=== PATIENT | female | born 1985 | race Caucasian/White ===

== ENCOUNTER 2022-10-19 10:19 | Emergency (ER) | payer MEDICARE, MEDICAID, SELFPAY ==
--- NOTE | ~2022-10-19 | US_ITS ---
EXAMINATION: Noninvasive assessment of the bilateral lower extremities with ARTERIAL DUPLEX CLINICAL INFORMATION: Lower extremity swelling and pain TECHNIQUE: Duplex Doppler techniques with waveform analysis and measurement of velocities in the bilateral common femoral, profunda femoris, superficial femoral, popliteal and tibial arteries were performed. COMPARISON: None FINDINGS: DIRECT DUPLEX DOPPLER FINDINGS: RIGHT LEG: Common femoral artery: 139 cm/s, phasicity: Triphasic Profunda femoris artery: 77.8 cm/s, phasicity: Triphasic Superficial femoral artery (proximal): 111 cm/s, phasicity: Triphasic Superficial femoral artery (mid): 122 cm/s, phasicity: Triphasic Superficial femoral artery (distal): 77.7 cm/s, phasicity: Triphasic Popliteal artery: 89.5 cm/s, phasicity: Triphasic Posterior tibial artery: 66.8 cm/s, phasicity: Triphasic Peroneal artery: 84.5 cm/s, phasicity: Triphasic LEFT LEG: Common femoral artery: 114 cm/s, phasicity: Triphasic Profunda femoris artery: 85.5 cm/s, phasicity: Triphasic Superficial femoral artery (proximal): 156 cm/s, phasicity: Triphasic Superficial femoral artery (mid): 146 cm/s, phasicity: Triphasic Superficial femoral artery (distal): 99.5 cm/s, phasicity: Triphasic Popliteal artery: 109 cm/s, phasicity: Triphasic Posterior tibial artery: 87.6 cm/s, phasicity: Triphasic US/US arterial duplex LE IMPRESSION: Right leg: Normal duplex arterial ultrasound without significant stenosis or arterial occlusion Left leg: Normal duplex arterial ultrasound without significant stenosis or arterial occlusion
--- NOTE | ~2022-10-19 | US_ITS ---
EXAMINATION: US VENOUS ULTRASOUND WITH DOPPLER LOWER EXTREMITY, BILATERAL CLINICAL INFORMATION: Bilateral lower extremity edema COMPARISON: None available. TECHNIQUE: Ultrasound of the deep veins is performed from the hip to the calf with compression sonography and color and pulse Doppler assessment. Spectral analysis with color-flow imaging is performed. FINDINGS: RIGHT: There is normal venous compression and respiratory variation and augmented flow. The visualized common femoral vein, superficial femoral vein, profunda femoral vein, popliteal vein, and the trifurcation region shows no evidence of deep venous thrombosis. There is no significant popliteal fossa cyst. Prominent lymph node is seen in the right groin LEFT: There is normal venous compression and respiratory variation and augmented flow. The visualized common femoral vein, superficial femoral vein, profunda femoral vein, popliteal vein, and the trifurcation region shows no evidence of deep venous thrombosis. There is no significant popliteal fossa cyst. Prominent lymph nodes seen in the left groin If the patient's symptoms persist, followup ultrasound in 5 days 7 days might be of value to exclude proximal propagation from a non-visualized calf vein. US/US venous duplex LE BI IMPRESSION: No DVT demonstrated in the bilateral lower extremity.
[2022-10-19 10:30] VITALS: BP 133/76; PULSE 79; RESP 18; TEMP 36.8; O2SAT 98; BMI 27.6
[2022-10-19 16:12] VITALS: BP 130/74; PULSE 68; RESP 16; TEMP 36.1; O2SAT 98
--- NOTE | 2022-10-19 16:12 | ED.EXTPRO ---
HPI - Extremity Problem General Chief complaint: Extremity Problem Stated complaint: cellulitis Time Seen by Provider: 10/19/22 11:39 Source: patient and RN notes reviewed Mode of arrival: ambulatory Limitations: no limitations History of Present Illness HPI Narrative: This is a 37-year-old female, with a past medical history polysubstance abuse on methadone, who presents to the emergency department with complaints of bilateral lower extremity redness and swelling x4 weeks. Patient reports that she has been in detox over the last several weeks and has gone to [facility] as well as [facility]. She states that last week she was seen at [facility] where they prescribed her cephalexin and another antibiotic, which she has been taking as prescribed however she reports that the swelling has not improved. She reports that she also was placed on Lasix which has provided her with some relief. Patient reports that she has had multiple ultrasounds which have been negative for DVT. She denies any chest pain, shortness of breath, fevers, chills, abdominal pain, nausea, vomiting, or diarrhea. No other complaints or concerns at this time. MD Complaint: extremity pain and extremity swelling Onset (ago): week(s) Location: lower extremity Quality: aching Radiation: none Relieving factors: nothing Exacerbating factors: nothing Associated symptoms: denies other symptoms Related Data Previous Rx's Medication Instructions Recorded prednisone 20 mg tablet 40 mg PO DAILY 5 days #10 tabs 10/19/22 Allergies Allergy/AdvReac Type Severity Reaction Status Date / Time olanzapine [From Zyprexa] Allergy Mild SWELLING Unverified 02/10/20 17:37 quetiapine [From Seroquel] AdvReac Mild HALLUCINATI Unverified 02/10/20 17:37 ON Review of Systems Review of Systems: Constitutional: No Weight loss, No Fever, No Chills ENT/Mouth: No Ear Pain, No Nasal Congestion, No Sinus Pain, No Hoarseness, No sore throat, No Rhinorrhea, No Swallowing Difficulty Cardiovascular: No Chest Pain, No SOB Respiratory: No Cough, No Sputum, No Wheezing Gastrointestinal: No Nausea, No Vomiting, No Diarrhea, No Constipation, No Abdominal pain Genitourinary: No Dysuria, No Urinary Frequency, No Hematuria, No Urinary Incontinence/retention, No Urgency, No Flank Pain Musculoskeletal: No joint pain, No Myalgias, No Joint Swelling Skin: No Skin Lesions, No rash Neuro: No Weakness, No Numbness, No Paresthesias [facility] Social History Social History Advance Directives: No Advance Directives Information Provided: No Physical Exam Vital Signs: Vital Signs: Last Vital Signs Temp 97.0 F 10/19/22 16:12 Pulse 68 10/19/22 16:12 Resp 16 10/19/22 16:12 BP 130/74 10/19/22 16:12 Pulse Ox 98 10/19/22 16:12 O2 Del Method Room Air 10/19/22 16:12 BMI result Body Mass Index 27.6 General: Awake, alert, and oriented X3. No acute distress. HEENT: Normal inspection CVS: Normal heart rate and rhythm. Pulses normal. S1-S2 regular Respiratory: No respiratory distress, no wheezing, rhonchi, or rales, lungs clear to auscultation bilaterally Skin: Warm, dry, no rashes noted to exposed skin. Normal skin color. Normal skin turgor. Extremities: Bilateral lower extremities with 1+ pitting edema and blanching scant erythema, area is not warm, ot red beefy red. There is no drainage or discharge. Neuro: Oriented X 3. No motor deficit. No sensory deficit. Course Reevaluation(s) Reevaluation #1: There were multiple attempts made for blood draws however upon numerous venipunctures it was unsuccessful. I do not think that this is cellulitic in nature. Patient is afebrile nontoxic-appearing, she has had no fevers or chills or chest pain.. Distal sensation and circulation is intact. Pedal pulses are 2+ bilaterally. Ultrasounds are negative. I advised patient that her symptoms may be due to a vascular issue and would benefit from follow-up with vascular specialist as well as a lead technician. Discussed with patient to finish the entire course of the rest of her antibiotics for full coverage, also given course of prednisone as this may help with her symptoms. Discussed importance of keeping legs elevated as this will help with her swelling. Given strict precautions of when to return with any new or worsening symptoms. Patient understands and agrees with plan Medical Decision Making Medical Decision Making MDM Narrative: 37-year-old female presenting for evaluation of bilateral lower extremity swelling. Patient has been seen by [facility] and [facility] for this and was told that it was cellulitis. On examination patient has scant erythema and hardness to bilateral lower extremities. She has no calf tenderness, 1+ edema however this does not appear cellulitic in nature as legs are not red. Vital signs are stable. Plan: Labs, venous duplex and arterial ultrasounds ordered Differential Diagnosis Differential Diagnoses: The differential diagnosis associated with the presentation includes Dependent edema, CHF, cellulitis, DVT Independent Interpretation I performed an independent interpretation of an: Ultrasound Radiology Impression Discussion of test interpretation with radiology: I have reviewed the radiologist's reading. Radiologist Impression: EXAMINATION:? US VENOUS ULTRASOUND WITH DOPPLER LOWER EXTREMITY, BILATERAL CLINICAL INFORMATION:? Bilateral lower extremity edema COMPARISON:? None available. TECHNIQUE: Ultrasound of the deep veins is performed from the hip to the calf with compression sonography and color and pulse Doppler assessment. Spectral analysis with color-flow imaging is performed. FINDINGS: RIGHT: There is normal venous compression and respiratory variation and augmented flow. The visualized common femoral vein, superficial femoral vein, profunda femoral vein, popliteal vein, and the trifurcation region shows no evidence of deep venous thrombosis. ? There is no significant popliteal fossa cyst. Prominent lymph node is seen in the right groin LEFT: There is normal venous compression and respiratory variation and augmented flow. The visualized common femoral vein, superficial femoral vein, profunda femoral vein, popliteal vein, and the trifurcation region shows no evidence of deep venous thrombosis. ? There is no significant popliteal fossa cyst. Prominent lymph nodes seen in the left groin If the patient's symptoms persist, followup ultrasound in 5 days 7 days might be of value to exclude proximal propagation from a non-visualized calf vein. US/US venous duplex LE BI IMPRESSION: No DVT demonstrated in the bilateral lower extremity. Dictated By: Charlie Farley MD EXAMINATION: Noninvasive assessment of the bilateral lower extremities with ARTERIAL DUPLEX CLINICAL INFORMATION: Lower extremity swelling and pain TECHNIQUE: Duplex Doppler techniques with waveform analysis and measurement of velocities in the bilateral common femoral, profunda femoris, superficial femoral, popliteal and tibial arteries were performed.? COMPARISON: None FINDINGS: DIRECT DUPLEX DOPPLER FINDINGS: RIGHT LEG: Common femoral artery: 139 cm/s, phasicity: Triphasic Profunda femoris artery: 77.8 cm/s, phasicity: Triphasic Superficial femoral artery (proximal): 111 cm/s, phasicity: Triphasic Superficial femoral artery (mid): 122 cm/s, phasicity: Triphasic Superficial femoral artery (distal): 77.7 cm/s, phasicity: Triphasic Popliteal artery: 89.5 cm/s, phasicity: Triphasic Posterior tibial artery: 66.8 cm/s, phasicity: Triphasic Peroneal artery: 84.5 cm/s, phasicity: Triphasic LEFT LEG: Common femoral artery: 114 cm/s, phasicity: Triphasic Profunda femoris artery: 85.5 cm/s, phasicity: Triphasic Superficial femoral artery (proximal): 156 cm/s, phasicity: Triphasic Superficial femoral artery (mid): 146 cm/s, phasicity: Triphasic Superficial femoral artery (distal): 99.5 cm/s, phasicity: Triphasic Popliteal artery: 109 cm/s, phasicity: Triphasic Posterior tibial artery: 87.6 cm/s, phasicity: Triphasic US/US arterial duplex LE BI IMPRESSION: ? Right leg: Normal duplex arterial ultrasound without significant stenosis or arterial occlusion ? Left leg: Normal duplex arterial ultrasound without significant stenosis or arterial occlusion ? ? ? Dictated By: Chalrie Farley MD Discharge Plan Discharge Clinical Impression: Swelling of both lower extremities Patient Disposition: Home, Self-Care Additional Instructions: Please finish the entire course of your previously prescribed antibiotics. Take full course prednisone. This medication may cause increased energy, take in morning with lots of fluids. Elevating her legs may help with the swelling. Please follow-up with your primary care physician. I am also giving your referral to a vascular specialist as well as a lead technician. Please call them next week to follow-up. If any new or worsening symptoms occur, including fevers, chills, worsening lower extremity swelling, redness, please return for re-evaluation. [facility] [address], [address] [place] [address] Phone:? tel:[phone] Prescriptions: New prednisone 20 mg tablet 40 mg PO DAILY 5 Days Qty: 10 0RF Referrals: [facility] Vascular Services [Provider Group] (BL lower leg swelling) Interventions: ED Discharge Assessment Last Done: 10/19/22 16:09 Discharge Date/Time: 10/19/22 16:13
== END 2022-10-19 16:13 | disposition home or self-care (01) ==
PROVIDERS: Emergency Provider Internal Medicine; PCP Family Medicine
DX: R60.0 Localized edema (principal); M79.605 Pain in left leg; M79.604 Pain in right leg; F19.10 Other psychoactive substance abuse, uncomplicated; F11.20 Opioid dependence, uncomplicated
CPT/HCPCS: 93925; 93970; 99283; 99284

== ENCOUNTER 2022-11-06 12:36 | Emergency (ER) | payer MEDICARE, MEDICAID, SELFPAY ==
--- NOTE | ~2022-11-06 | XR_ITS ---
EXAMINATION: XR HAND, LEFT CLINICAL INFORMATION: 5th finger pain after fall COMPARISON: None available. TECHNIQUE: PA, lateral, and oblique views of the left hand. FINDINGS: Plate and screw device present over healed radial fracture. Some mild degenerative changes are present at the DIP joints along with a marginal erosion at the base of the third proximal phalanx There is no evidence of an acute osseous injury or fracture. XR/XR hand LT min 3V Impression: 1. No evidence of an acute osseous injury. 2. Degenerative changes as described above with marginal erosion base of the third proximal phalanx.
--- NOTE | 2022-11-06 12:51 | ED.GENADULT ---
HPI - General Adult General Chief complaint: General Medical Stated complaint: Vascular issues/Fall L pinky inj Time Seen by Provider: 11/06/22 15:39 Source: patient, RN notes reviewed and old records reviewed Mode of arrival: ambulatory History of Present Illness HPI narrative: 37-year-old female with a past medical history of polysubstance abuse on methadone, presenting to the ED complaining of acute on chronic persistent bilateral LE edema > LLE, and left pinky swelling, pain, ecchymosis s/p mechanical trip and fall early this morning. Admits has been seen at [facility] and [place] for similar symptoms, as well as our ED on 10/19, has had 3 negative ultrasounds, taking Lasix 40 mg daily initially with some improvement. Denies fever, numbness/tingling, SOB/CP, head trauma, LOC Related Data Previous Rx's Medication Instructions Recorded prednisone 20 mg tablet 40 mg PO DAILY 5 days #10 tabs 10/19/22 furosemide 40 mg tablet (Lasix) 40 mg PO BID 7 days #14 tabs 11/06/22 Allergies Allergy/AdvReac Type Severity Reaction Status Date / Time olanzapine [From Zyprexa] Allergy Mild SWELLING Unverified 02/10/20 17:37 aripiprazole [From Abilify] Allergy Swelling Verified 11/06/22 12:52 naloxone Allergy Swelling Verified 11/06/22 12:52 quetiapine [From Seroquel] AdvReac Mild HALLUCINATI Unverified 02/10/20 17:37 ON Review of Systems Review of Systems: Constitutional: No Fever, No Chills ENT/Mouth: No Ear Pain, No Nasal Congestion, No sore throat, No Rhinorrhea, No Swallowing Difficulty Cardiovascular: No Chest Pain, No SOB, +LE edema Respiratory: No Cough, No Sputum, No Wheezing Gastrointestinal: No Nausea, No Vomiting, No Diarrhea, No Constipation, No Abdominal pain Genitourinary: No Dysuria, No Urinary Frequency, No Hematuria, No Flank Pain Musculoskeletal: + joint pain, No Myalgias, No Joint Swelling Skin: + Skin Lesions, No rash Neuro: No Weakness, No Numbness, No Paresthesias Yes all other systems are reviewed and are negative Constitutional: Constitutional: Reports as per [facility] Past Medical History Attestation statement: The following information was validated with the patient. Source: old records reviewed Social History Social History Alcohol intake: never Smoked in Last 30 Days: No Use of substances other than those prescribed or required for medical reasons: No Advance Directives: No Advance Directives Information Provided: No Physical Exam ED Vital Signs: Vital Signs - 24 hr 11/06/22 12:52 11/06/22 16:20 Temperature 96.0 F L 98.1 F Pulse Rate 102 H 87 Respiratory Rate 18 16 Blood Pressure 143/89 H 146/81 H Pulse Oximetry 93 98 Oxygen Delivery Method Room Air BMI result Body Mass Index 27.9 Const General: cooperative, comfortable and no acute distress Orientation/consciousness: patient oriented x3 Limitations: no limitations HENMT Head: Yes normal to inspection and Yes atraumatic Ears: hearing grossly normal bilaterally General nose exam: Normal external nose present Face and sinus: Yes normal facial exam Eyes General: appearance normal, both eyes and all related structures EOM: EOMs intact bilaterally Neck Neck: Yes normal visual inspection and Yes no meningeal signs Resp Effort & Inspection: normal respiratory effort and no respiratory distress Auscultation: clear to auscultation bilaterally, no crackles, no rhonchi and no wheezes Cardio Rate: regular rate Heart sounds: S1 normal heart sound present and S2 normal heart sound present Peripheral pulses: Peripheral pulses 2+ throughout GI Inspection: Yes normal to inspection Palpation (GI): Soft to palpation, nontender, no guarding and not rigid Skin Rashes: no rashes Neuro General: patient oriented x3, tone normal and no meningeal signs Gait exam (Neuro): Normal gait present Extrem Other: bilateral LE 1+ pitting edema, skin tight, no erythema/warmth, no weeping/open wounds. No calf tenderness. Neurovascularly intact distally. Compartments soft Left 5th digit diffusely swollen with ecchymosis and decreased ROM. NV intact. Left upper thigh with small abrasions and ecchymosis. Mildly tender to palpation. No crepitus Course Course Course Narrative: RME - 37 yo female with history of polysubstance abuse, hx chronic LE edema who presents to the ER for evaluation of worsening LE redness, swelling and hardness for the last 1 week. She is also reporting left pinky pain s/p mechanical fall last night. Reports being on 2 abx from [facility] for LE cellulitis in September. Seen here 10/22 and had normal venous and arterial studies. Currently on lasix Plan: x-ray hand 1654--XR hand LT min 3V Impression: 1.? No evidence of an acute osseous injury. 2.? Degenerative changes as described above with marginal erosion base of the third proximal phalanx. ?ADDENDUMThe marginal erosion involving the proximal third phalanx can be seen in entities such as psoriatic arthritis. Please correlate. -[id number]--labs unremarkable. BMP WNL > will increase patient's Lasix to 40mg BID x7 days and have her follow-up with PCP. Finger splint applied for comfort and stability. Results discussed with patient including worrisome signs and symptoms and strict return precautions, and when to return to the emergency department. They verbalized understanding and feel safe for discharge at this time. Procedures Orthopedic Splinting/Casting Injury #1: Side: left Upper Extremity Injury Location: finger Upper Extremity Immobilizer: finger (other) Medical Decision Making Medical Decision Making [facility] Narrative: 37-year-old female with a past medical history of polysubstance abuse on methadone, presenting to the ED complaining of acute on chronic persistent bilateral LE edema > LLE, and left pinky swelling, pain, ecchymosis s/p mechanical trip and fall early this morning. On exam vital signs stable, NAD, nontoxic appearing, physical exam as noted above with bilateral LE pitting edema without evidence of cellulitis or open wounds/weeping. Left pinky with ecchymosis/swelling, & bruising to left upper thigh. No calf tenderness or crepitus. Concern for peripheral edema. Low suspicion for DVT/arterial insufficiency with multiple recent negative ultrasounds. No evidence of cellulitis at this time. Low suspicion for CHF or compartment syndrome. Concern for finger sprain versus fracture. No need for repeat ultrasound at this time Plan: Labs, hand x-ray Please refer to course for remaining clinical decision making, interpretation of labs/imaging results, and discussions with consultants and/or family members. Differential Diagnosis Differential Diagnoses: The differential diagnosis associated with the presentation includes As above Admission/Observation Consideration of admission/observation: Escalation of care including admission/observation considered Lab Data [facility] Lab Attestation statement: I reviewed the patient's lab results. 11/06/22 16:30 06/14/23 16:30 Labs: Lab Results 11/06/22 11/06/22 11/06/22 Range/Units 16:30 16:30 16:30 WBC 5.8 (4.8-10.8) X10*3/uL RBC 4.19 L (4.20-5.50) X10*6/uL Hgb 11.9 L (12.0-16.0) g/dl Hct 37.4 (37.0-47.0) % MCV 89.3 (80.0-98.0) fL MCH 28.4 (27.0-33.0) pg MCHC 31.8 (31.0-35.0) g/dl RDW 14.1 (11.0-16.0) % Plt Count 171 (160-400) X10*3/uL MPV 9.6 (9.4-12.3) fL Immature Gran % (Auto) 0.3 (0.0-0.4) % Neut % (Auto) 41.9 L (45-73) % Lymph % (Auto) 47.9 H (20-40) % Mcculloch % (Auto) 8.4 (2-11) % Eos % (Auto) 1.2 (0-4) % Baso % (Auto) 0.3 (0-2) % Lymph # (Auto) 2.8 (1.2-4.9) X10*3/uL Mcculloch # (Auto) 0.5 (0.1-1.2) X10*3/uL Eos # (Auto) 0.1 (0.0-0.4) X10*3/uL Baso # (Auto) 0.0 (0.0-0.2) X10*3/uL Abs Immat Gran (auto) 0.02 (0.00-0.03) X10*3/uL Absolute Neuts (auto) 2.4 (2.0-8.3) x10*3/uL Absolute Nucleated RBC 0.000 (0.0-0.012) X10*3/uL Nucleated RBC % (auto) 0.0 (0.0-0.2) /100WBC Sodium 141 (135-145) mmol/L Potassium 3.6 (3.3-5.1) mmol/L Chloride 102 (96-108) mmol/L Carbon Dioxide 29 (22-29) mmol/L Anion Gap 14 (12-20) BUN 17 H (9-16) mg/dL Creatinine 0.68 (0.5-1.4) mg/dL Estim Creat Clear Calc 153.2 Estimated GFR > 60 Random Glucose 121 H (60-115) mg/dL Calcium 9.4 (8.4-10.2) mg/dL Total Bilirubin 0.7 (0.0-1.0) mg/dL Direct Bilirubin 0.1 (0.0-0.5) mg/dL AST 28 (5-31) U/L ALT 19 (0-31) U/L Alkaline Phosphatase 86 (39-117) U/L B-Natriuretic Peptide < 10 (<100) pg/mL Total Protein 7.7 (6.5-8.0) g/dL Albumin 4.3 (3.5-5.0) g/dL Radiology Impression Discussion of test interpretation with radiology: I have reviewed the radiologist's reading. External Record Review External record reviewed: Inpatient record, Office record, Outpatient record, Prior outpatient labs, Prior outpatient radiology, Primary care record and Outside ED record Tests considered The following testing was considered but not selected: As above Discharge Plan Discharge Clinical Impression: Pedal edema, Finger sprain Patient Disposition: Home, Self-Care Instructions: Finger Sprain (ED), Leg Edema (ED) Additional Instructions: Your blood work is reassuring. your x-ray does not show a fracture, is concerning for psoriatic arthritis. Please follow-up with Rheumatology and your primary care doctor Elevate your legs, wear compression stockings. We will increase her Lasix to 40 mg twice daily for the next week You need to follow-up with her doctor and specialist previously recommended Ice finger and thigh. Take Tylenol and Motrin as needed If symptoms persist or worsen you develop redness, fever, shortness breath or chest pain return to the ED Prescriptions: New furosemide [Lasix] 40 mg tablet 40 mg PO BID 7 Days Qty: 14 0RF No Action prednisone 20 mg tablet 40 mg PO DAILY 5 Days Qty: 10 0RF Referrals: [facility] [Provider Group] (as needed) [facility] [Provider Group]
[2022-11-06 12:52] VITALS: BP 143/89; PULSE 102; RESP 18; TEMP 35.6; O2SAT 93; BMI 27.9
[2022-11-06 16:20] VITALS: BP 146/81; PULSE 87; RESP 16; TEMP 36.7; O2SAT 98
[2022-11-06 16:38] LABS: MANUAL DIFF FLAG NO
[2022-11-06 16:44] LABS: Basophils Percent Auto 0.3 % (0-2); Eosinophils Absolute Auto 0.1 X10*3/uL (0.0-0.4); Eosinophils Percent Auto 1.2 % (0-4); Hematocrit 37.4 % (37.0-47.0); Hemoglobin 11.9 g/dl (12.0-16.0); Imm Gran Abs Auto 0.02 X10*3/uL (0.00-0.03); Imm Gran Pct Auto 0.3 % (0.0-0.4); Lymphocytes Absolute Auto 2.8 X10*3/uL (1.2-4.9); Lymphocytes Percent Auto 47.9 % (20-40); Mean Corpuscular HGB Conc 31.8 g/dl (31.0-35.0); Mean Corpuscular Hemoglobin 28.4 pg (27.0-33.0); Mean Corpuscular Volume 89.3 fL (80.0-98.0); Mean Platelet Volume 9.6 fL (9.4-12.3); Monocytes Absolute Auto 0.5 X10*3/uL (0.1-1.2); Monocytes Percent Auto 8.4 % (2-11); Neutrophils Absolute Auto 2.4 x10*3/uL (2.0-8.3); Neutrophils Percent Auto 41.9 % (45-73); Platelet Count 171 X10*3/uL (160-400); Red Blood Count 4.19 X10*6/uL (4.20-5.50); Red Cell Distribution Width 14.1 % (11.0-16.0); White Blood Count 5.8 X10*3/uL (4.8-10.8)
[2022-11-06 16:56] LABS: Alanine Aminotransferase 19 U/L (0-31); Albumin Level 4.3 g/dL (3.5-5.0); Alkaline Phosphatase 86 U/L (39-117); Anion Gap 14 (12-20); Aspartate Amino Transferase 28 U/L (5-31); Bilirubin Direct 0.1 mg/dL (0.0-0.5); Bilirubin Total 0.7 mg/dL (0.0-1.0); Blood Urea Nitrogen 17 mg/dL (9-16); Calcium 9.4 mg/dL (8.4-10.2); Carbon Dioxide 29 mmol/L (22-29); Chloride 102 mmol/L (96-108); Creatinine Clr Calc Pharmacy 153.2; Estimated Glomerular Filt Rate > 60; Glucose Random 121 mg/dL (60-115); Potassium 3.6 mmol/L (3.3-5.1); Sodium 141 mmol/L (135-145); Total Protein 7.7 g/dL (6.5-8.0)
[2022-11-06 17:01] LABS: B Type Natriuretic Peptide < 10 pg/mL (<100)
[2022-11-06 18:13] VITALS: BP 116/84; PULSE 83; RESP 16; TEMP 36.2; O2SAT 98
== END 2022-11-06 18:23 | disposition home or self-care (01) ==
PROVIDERS: Physician Assistant; Emergency Provider Emergency Medicine; PCP Family Medicine
DX: R60.9 Edema, unspecified (principal); F19.10 Other psychoactive substance abuse, uncomplicated; M79.89 Other specified soft tissue disorders; S63.619A Unspecified sprain of unspecified finger, initial encounter; X58.XXXA Exposure to other specified factors, initial encounter; Y93.9 Activity, unspecified; Y92.9 Unspecified place or not applicable; Y99.9 Unspecified external cause status; Z79.899 Other long term (current) drug therapy
CPT/HCPCS: 36415; 73130; 80048; 80076; 83880; 85025; 99283; 99284

== ENCOUNTER 2022-11-07 11:05 | Emergency (ER) | payer MEDICARE, MEDICAID, SELFPAY ==
--- NOTE | ~2022-11-07 | CT_ITS ---
EXAMINATION: CT HEAD WITHOUT CONTRAST CLINICAL INFORMATION: Headache. Recent fall. History of traumatic brain injury. COMPARISON: None. TECHNIQUE: Contiguous axial imaging was performed from the skull base to vertex without intravenous contrast. This CT examination was performed using dose optimization techniques as appropriate, variously including the following: * Automated exposure control * Adjustment of mA and/or kV according to patient size (this includes techniques or standardized protocols for targeted exams where dose is matched to indication/reason for exam; i.e. extremities or head) Use of iterative reconstruction technique DLP: 580 mGy-cm. FINDINGS: There is no evidence of acute intracranial hemorrhage or territorial infarction. No abnormal mass effect or midline shift is seen. Price to white matter differentiation is well preserved. No extra-axial fluid collections are identified. No hydrocephalus. No significant volume loss. There is no abnormal attenuation within the brain parenchyma. The osseous structures and soft tissues are normal. The mastoid air cells and visualized portions of the paranasal sinuses are well aerated. CT/CT head/brain wo IV con IMPRESSION: No acute intracranial pathology.
[2022-11-07 11:14] VITALS: BP 137/80; PULSE 90; O2SAT 99
[2022-11-07 11:23] VITALS: BMI 31.1
[2022-11-07 11:24] VITALS: BP 130/81; PULSE 85; RESP 12; TEMP 36.8; O2SAT 96
--- NOTE | 2022-11-07 12:37 | ED.HA ---
HPI - Headache General Chief Complaint: Headache Stated Complaint: hedache from detox,fall 2days ago per ems Time Seen by Provider: 11/07/22 12:29 Source: patient, EMS and old records reviewed Mode of arrival: EMS Limitations: no limitations History of Present Illness HPI Narrative: 37-year-old female with history of polysubstance abuse on methadone, chronic lower extremity edema, history of lower extremity cellulitis, history of TBI who presents to the ER from her [facility] program for evaluation of a headache after she fell 2 days ago. She reports waking up with severe throbbing headache this morning accompanied by photophobia and eye pain. She states that pain is constant and rates it 10/10. She tells me she has had migraines in the past and was getting botox injections for prevention but stopped a couple of months ago. She denies fever, chills, nausea or vomiting MD elicited complaint: headache Pertinent past history: recent trauma Onset description: gradually Location: generalized Severity: severe Pain scale (0-10): 10 Quality & Timing: progressively worsening Exacerbating factors: light and noise Relieving factors: rest and dark room Associated symptoms: photophobia and sensitivity to sound Treatments prior to arrival: none Related Data Previous Rx's Medication Instructions Recorded prednisone 20 mg tablet 40 mg PO DAILY 5 days #10 tabs 10/19/22 furosemide 40 mg tablet (Lasix) 40 mg PO BID 7 days #14 tabs 11/06/22 wleugcxcii-phfmgwjzokihv-uopjyvnq 1 cap PO Q8H PRN headache #8 caps 11/07/22 50 mg-300 mg-40 mg capsule (Fioricet) Allergies Allergy/AdvReac Type Severity Reaction Status Date / Time olanzapine [From Zyprexa] Allergy Mild SWELLING Unverified 02/10/20 17:37 aripiprazole [From Abilify] Allergy Swelling Verified 11/06/22 12:52 naloxone Allergy Swelling Verified 11/06/22 12:52 quetiapine [From Seroquel] AdvReac Mild HALLUCINATI Unverified 02/10/20 17:37 ON Review of Systems Review of Systems: Yes all other systems are reviewed and are negative PMFSH Social History Social History Alcohol intake: never Advance Directives: No Physical Exam Vital Signs: Vital Signs: Last Vital Signs Temp 98.3 F 11/07/22 14:32 Pulse 88 11/07/22 14:32 Resp 14 11/07/22 14:32 BP 125/78 11/07/22 14:32 Pulse Ox 99 11/07/22 14:32 O2 Del Method Room Air 11/07/22 14:32 BMI result Body Mass Index 31.1 Appearance: Alert. Oriented X3. No acute distress. HEENT: normal inspection. Patient had her eyes shut throughout examination CVS: Normal heart rate and rhythm. Pulses normal. Respiratory: No respiratory distress. Skin: Skin warm and dry. Normal skin color. Normal skin turgor. No rashes. Extremities: strength and sensation intact. Normal ROM Neuro: Oriented X 3. No motor deficit. No sensory deficit. Medications Administered Discontinued Medications Generic Name Dose Route Start Last Admin Trade Name Freq PRN Reason Stop Dose Admin Diphenhydramine HCl 50 mg 11/07/22 13:04 11/07/22 14:36 Diphenhydramine Hcl 50 Mg/Ml Vial IVPUSH 11/07/22 13:05 Not Given ONCE ONE Ibuprofen 600 mg 11/07/22 14:14 11/07/22 15:04 Ibuprofen 600 Mg Tablet PO 11/07/22 14:15 600 mg ONCE ONE Administration Ketorolac Tromethamine 30 mg 11/07/22 13:04 11/07/22 14:36 Ketorolac Tromethamine 30 Mg/Ml Vial IVPUSH 11/07/22 13:05 Not Given ONCE ONE Metoclopramide HCl 10 mg 11/07/22 13:04 11/07/22 14:37 Metoclopramide Hcl 10 Mg/2 Ml Vial IVPUSH 11/07/22 13:05 Not Given ONCE ONE Medical Decision Making Medical Decision Making MDM Narrative: 37 female presenting with headache, hx TBI. she reports headache is 10/10. Your recent fall with head her head. She does not take any medications for headaches at this time. She was previously getting Botox injections but has follow-up in the last several years. Neurologically she is intact. She has photophobia, nuchal rigidity or other concerning signs or symptoms on examination. She was offered IV migraine cocktail however she refused. She was given oral motion with some improvement in her headache. At this time she is stable for discharge home with prn fiorcet. outpatient follow up with PCP recommended. Differential Diagnosis Differential Diagnoses: The differential diagnosis associated with the presentation includes Migraine headache, ocular migraine, tension headache, cluster headache, dehydration, ICH/SAH Lab Data MDM Lab Attestation statement: I reviewed the patient's lab results. Labs from yesterday were reviewed Independent Interpretation I performed an independent interpretation of an: CT Scan Interpretation: No cerebral edema or bleed, agree with radiologist read Radiology Impression Discussion of test interpretation with radiology: I have reviewed the radiologist's reading. Radiologist Impression: CT/CT head/brain wo IV con IMPRESSION: No acute intracranial pathology External Record Review External record reviewed: Outpatient record and Prior outpatient labs Prescription Management I considered prescription management with: Pain Medication Chronic Conditions Patient?s care impacted by: Other (polysubstance abuse) Critical Care Time Critical Care Time Critical Care Time: No Discharge Plan Discharge Clinical Impression: Headache Patient Disposition: Home, Self-Care Instructions: General Headache (ED) Additional Instructions: Your CT scan today was normal. Take the prescribed medication as needed for headaches. Follow up with your doctor. If you develop new or worsening symptoms call 911 or come back to the ER for further evaluation. Prescriptions: New cjsbucjnsk-jduyaoggqpzin-hial [Fioricet] 50-300-40 mg capsule 1 cap PO Q8H PRN (Reason: headache) Qty: 8 0RF No Action prednisone 20 mg tablet 40 mg PO DAILY 5 Days Qty: 10 0RF furosemide [Lasix] 40 mg tablet 40 mg PO BID 7 Days Qty: 14 0RF Interventions: ED Discharge Assessment Last Done: 11/07/22 15:50
--- NOTE | 2022-11-07 14:13 | PC.NURSE ---
PT REFUSED IV AND IV MEDICATIONS
[2022-11-07 14:32] VITALS: BP 125/78; PULSE 88; RESP 14; TEMP 36.8; O2SAT 99
[2022-11-07] MEDS: Ibuprofen 600 MG TABLET PO (15:04)
--- NOTE | 2022-11-07 16:10 | PC.NURSE ---
atif tss called at [phone] imformed patient is ready to be picked up
== END 2022-11-07 16:35 | disposition home or self-care (01) ==
PROVIDERS: Emergency Provider Emergency Medicine
DX: R51.9 Headache, unspecified (principal); H53.143 Visual discomfort, bilateral; Z79.899 Other long term (current) drug therapy
CPT/HCPCS: 70450; 99283; 99284